=== PATIENT | female | born 1950 | race African-American/Black ===

== ENCOUNTER 2021-02-16 14:35 | Emergency (ER) | payer BC, MEDICARE, OTHER ==
[~2021-02-16] VITALS: Ht 165.1 cm; Wt 77.1 kg
--- NOTE | 2021-02-16 15:03 | NUR ---
Dr Az Garg at bedside for MSE, along with ear irrigation and earwax removal.
[2021-02-16] MEDS ORDERED: CARB15DR63 OT ×2 (15:18→15:22)
--- NOTE | 2021-02-16 15:45 | NUR ---
Patient discharged to home in stable condition. Written and verbal after care instructions given. Patient verbalizes understanding of instructions. Stressed follow up or return to ER for worsening s/s.
[2021-02-16 16:58] VITALS: BP 130/85
== END 2021-02-16 15:45 | disposition home or self-care (01) ==
LOC: ER 14:35
DX: H61.22 Impacted cerumen, left ear (principal); J45.909 Unspecified asthma, uncomplicated; Z88.0 Allergy status to penicillin; R03.0 Elevated blood-pressure reading, without diagnosis of hypertension
CPT/HCPCS: A4663

== ENCOUNTER 2021-02-18 02:22 | Emergency (ER) | payer OTHER ==
[~2021-02-18] VITALS: Ht 165.1 cm; Wt 72.6 kg
[~2021-02-18 02:22] MED LIST: CARB15DR63 OT
--- NOTE | 2021-02-18 02:34 | NUR ---
Pt arrived at the ER with c/o left ear pain x 4 days, patient was treated here 2 days ago, and was given a prescription but feeling worse today, difficulty hearing.
--- NOTE | 2021-02-18 02:35 | NUR ---
Dr. Wolfe on bedside for MSE.
[2021-02-18] MEDS ORDERED: OXYC-128 PO (02:57)
[2021-02-18] MEDS ORDERED: NEOM10DR11 LEFT EAR (02:57)
[2021-02-18 03:05] VITALS: BP 121/32
--- NOTE | 2021-02-18 03:05 | NUR ---
Patient discharged to home in stable condition. Written and verbal after care instructions given. Patient verbalizes understanding of instructions. Stressed follow up or return to ER for worsening s/s. Patient ambulated from the ER with steady gait. All belongings with patient.
== END 2021-02-18 03:06 | disposition home or self-care (01) ==
LOC: ER 02:22
DX: H61.22 Impacted cerumen, left ear (principal); R00.0 Tachycardia, unspecified; J45.909 Unspecified asthma, uncomplicated; E11.9 Type 2 diabetes mellitus without complications
CPT/HCPCS: A4663

== ENCOUNTER 2021-02-22 18:10 | Emergency (ER) | payer OTHER ==
[~2021-02-22] VITALS: Ht 165.1 cm; Wt 72.6 kg
[~2021-02-22 18:10] MED LIST changes: +NEOM10DR11 LEFT EAR; +OXYC-128 PO
--- NOTE | 2021-02-22 18:23 | NUR ---
PT IS IN ROOM #2B. DR VILLA EVALUATED THE PT.
[2021-02-22] MEDS ORDERED: PSEUDOEPHEDRINE HCL 30 MG TABLET PO ONE (19:00)
[2021-02-22] MEDS ORDERED: ALPRAZOLAM 0.25 MG TABLET PO ONE (19:00)
[2021-02-22] MEDS ORDERED: ALPR0.5T PO (19:03)
[2021-02-22] MEDS ORDERED: PSEUDOEPHEDRINE HCL 30 MG TABLET ONE (19:09)
[2021-02-22] MEDS ORDERED: ALPRAZOLAM 0.25 MG TABLET ONE (19:10)
[2021-02-22 19:19] VITALS: BP 124/77
--- NOTE | 2021-02-22 19:19 | NUR ---
Patient discharged to home in stable condition. Written and verbal after care instructions given. Patient verbalizes understanding of instructions. Stressed follow up or return to ER for worsening s/s. Steady gait. All belongings with patient. VSS. Addendum: 02/22/21 at 1920 by KMORADI Instructed not to drive - said her daughter will be picking her up.
== END 2021-02-22 19:16 | disposition home or self-care (01) ==
LOC: ER 18:10
DX: H60.92 Unspecified otitis externa, left ear (principal); R09.81 Nasal congestion; F41.9 Anxiety disorder, unspecified; J45.909 Unspecified asthma, uncomplicated; E11.9 Type 2 diabetes mellitus without complications; Z79.899 Other long term (current) drug therapy; Z88.0 Allergy status to penicillin
CPT/HCPCS: A4663

== ENCOUNTER 2021-03-05 14:37 | Emergency (ER) | payer OTHER ==
[~2021-03-05] VITALS: Ht 170.2 cm; Wt 74.8 kg
[~2021-03-05 14:37] MED LIST changes: +ALPR0.5T PO
[2021-03-05] MEDS ORDERED: IV NORMAL SALINE 500 ML BAG IV ONE (15:15)
[2021-03-05 15:47] LABS: HEMATOCRIT 32.3 % (31.2-41.9); MEAN CORPUSCULAR HEMOGLOBIN 26.4 uug (24.7-32.8); MEAN CORPUSCULAR VOLUME 82.7 fL (75.5-95.3); PLATELET COUNT (AUTO) 349 K/uL (179-408)
[2021-03-05 15:54] LABS: BILIRUBIN,DIRECT 0.1 mg/dL (0.0-0.2); BILIRUBIN,TOTAL 0.3 mg/dL (0.2-1.0); CREATININE 1.2 mg/dL (0.6-1.3); POTASSIUM 3.9 mmol/L (3.5-5.1); TOTAL PROTEIN, SERUM 7.6 g/dL (6.4-8.2)
[2021-03-05 16:12] LABS: *BILIRUBIN,URIN NEGATIVE (NEGATIVE); *BLOOD, URINE NEGATIVE (NEGATIVE); *CLARITY,URINE CLEAR (CLEAR); *COLOR,URINE YELLOW (YELLOW); *KETONES,URINE NEGATIVE (NEGATIVE); *UROBILINOGEN,URINE 0.2 E.U./dl (NORMAL); LEUKOCYTE ESTERASE ,URINE TRACE (NEGATIVE); NITRITE, URINE NEGATIVE (NEGATIVE); UGLUCOSE 1+ (NEGATIVE)
--- NOTE | 2021-03-05 16:28 | NUR ---
Patient discharged to home in stable condition with daughter. Written and verbal after care instructions given. Patient verbalizes understanding of instructions. Stressed follow up or return to ER for worsening s/s.
[2021-03-05 19:55] LABS: BACTERIA,URINE FEW /HPF (NONE SEEN); RBC,URINE 0-3 /HPF (0-3); SQUAMOUS EPITHELIAL CELL,UR MANY /HPF (NONE SEEN)
== END 2021-03-05 17:02 | disposition home or self-care (01) ==
LOC: ER 14:37
DX: R55 Syncope and collapse (principal); R94.31 Abnormal electrocardiogram [ECG] [EKG]; J45.909 Unspecified asthma, uncomplicated; F41.9 Anxiety disorder, unspecified; E11.65 Type 2 diabetes mellitus with hyperglycemia
CPT/HCPCS: 36415; 70030-TC; 70450; 71045; 83605; 83690; 85025; 85730; 87040; 87086; 93005; A4663; J7030